=== PATIENT | female | born 1955 | race Caucasian/White ===

== ENCOUNTER 2018-07-04 05:50 | Inpatient (IN) ==
[2018-07-04] MEDS ORDERED: ACETAMINOPHEN 500 MG TABLET PO STA (07:36)
[2018-07-04] MEDS ORDERED: ONDANSETRON 4 MG/2 ML VIAL IV STA (07:36)
[2018-07-04 08:03] LABS: Basophils % 0.6 % (0.0-0.8); Eosinophils # 0.1 10*3/uL (0.0-0.87); Eosinophils % 2.6 % (0.00-10.9); Hematocrit 33.2 VOL% (35.7-47.0); Immature Granulocytes % 0.2 %; Immature Granulocytes Absolute 0.01 #; Lymphocytes # 1.5 10*3/uL (1.4-4.0); Lymphocytes % 27.1 % (21.3-54.2); Mean Corpuscular HGB Conc 33.1 GM/DL (32-36); Mean Corpuscular Hemoglobin 32 PG (27-34); Mean Corpuscular Volume 97.1 FL (87-102); Mean Platelet Volume 9.3 FL (9.6-12.0); Monocytes # 0.6 10*3/uL (0.11-0.8); Monocytes % 10.5 % (1.7-12.7); Neutrophils # 3.2 10*3/uL (1.4-7.4); Platelet Count 181 T/CUMM (130-400); Red Blood Count 3.42 MC/CUMM (3.8-5.5); White Blood Count 5.4 T/CUMM (4-12)
[2018-07-04 08:17] LABS: PT Patient Result 10.2 SECS; Partial Thromboplastin Time 28.2 SECS (0-40)
[2018-07-04 08:35] LABS: Alanine Aminotransferase 24 U/L (13-56); Albumin 3.1 G/DL (3.4-5.0); Alkaline Phosphatase 106 U/L (45-117); Aspartate Amino Transferase 18 U/L (0-37); Bilirubin,Total < 0.39 MG/DL (0.2-1.0); Blood Urea Nitrogen 12 MG/DL (7-18); Calcium 8.3 MG/DL (8.5-10.1); Glucose 108 MG/DL (74-106); Osmolality,Calculated 283.1 MOS/KG (273-304); Potassium 3.9 MMOL/L (3.5-5.1); Sodium 142 MMOL/L (136-145); Total Protein 6.4 G/DL (6.4-8.3)
[2018-07-04 11:29] LABS: Appearance,CSF Clear; Lymphocytes,CSF 83 %; Monocytes,CSF 17 %; Red Blood Cell,CSF 4 C/CUMM; White Blood Cell,CSF 7 C/CUMM
[2018-07-04] MEDS ORDERED: cefTRIAXone 2,000 MG in SODIUM CHLORIDE 0.9% 100 ML IV ONE (12:23)
[2018-07-04] MEDS ORDERED: cefTRIAXone 1,000 MG VIAL ONE (12:49)
[2018-07-04] MEDS: cefTRIAXone 2,000 MG in SYRINGE 1 EACH IV SCH ×2 (13:00→23:22)
[2018-07-04 13:23] LABS: Apearance,Urine CLEAR (Clear); Bilirubin,Urine Negative (Negative); Blood, Urine Negative (Negative); Glucose,Urine (UA) Negative (Negative); Hyaline Casts,Urine 1 /LPF (0-3); Ketones,Urine Negative (Negative); Mucus,Urine Occasional /LPF (Occasional); Nitrite,Urine Negative (Negative); Protein,Urine Negative; RBC,Urine <1 /HPF (0-4); Squamous Epithelial Cell,Urine Occasional /HPF (0-10); Urine Color Yellow (Yellow); Urine Specific Gravity > 1.060 (1.001-1.035); Urine Urobilinogen < 2.0 EU/DL (0.2-1.0)
[2018-07-04] MEDS ORDERED: ONDANSETRON 4 MG/2 ML VIAL IV PRN (13:31)
[2018-07-04] MEDS ORDERED: PROMETHAZINE 25 MG/1 ML VIAL IM PRN (13:31)
[2018-07-04] MEDS ORDERED: ACETAMINOPHEN 325 MG TABLET PO PRN (13:31)
[2018-07-04] MEDS ORDERED: BISACODYL 5 MG TABLET PO PRN (13:31)
[2018-07-04] MEDS: SODIUM CHLORIDE 0.9% 1,000 ML IV SCH (16:33)
[2018-07-04] MEDS: METHOCARBAMOL INJ 500 MG in SODIUM CHLORIDE 0.9% 100 ML IV SCH (17:35)
[2018-07-04] MEDS: ENOXAPARIN 40 MG/0.4 ML SYRINGE SUBCUT SCH (18:04)
[2018-07-04] MEDS: ACYCLOVIR INJ 500 MG in SODIUM CHLORIDE 0.9% 100 ML IV SCH (18:16)
[2018-07-04] MEDS: POTASSIUM CHLORIDE 8 MEQ CAPSULE PO SCH (20:43)
[2018-07-04] MEDS: CLORAZEPATE 3.75 MG TABLET PO SCH (20:43)
[2018-07-04] MEDS: CHOLESTYRAMINE 4 GM PACK PO SCH (20:43)
[2018-07-05] MEDS: METHOCARBAMOL INJ 500 MG in SODIUM CHLORIDE 0.9% 100 ML IV SCH ×2 (00:05→09:25)
[2018-07-05] MEDS: ACYCLOVIR INJ 500 MG in SODIUM CHLORIDE 0.9% 100 ML IV SCH ×3 (00:38→17:42)
[2018-07-05 05:41] LABS: Basophils % 0.9 % (0.0-0.8); Eosinophils # 0.2 10*3/uL (0.0-0.87); Eosinophils % 4.3 % (0.00-10.9); Hematocrit 32.6 VOL% (35.7-47.0); Hemoglobin 10.7 GM/DL (12.0-16.0); Immature Granulocytes % 0.2 %; Immature Granulocytes Absolute 0.01 #; Lymphocytes # 1.6 10*3/uL (1.4-4.0); Lymphocytes % 35.3 % (21.3-54.2); Mean Corpuscular HGB Conc 32.8 GM/DL (32-36); Mean Corpuscular Hemoglobin 32 PG (27-34); Mean Corpuscular Volume 96.4 FL (87-102); Mean Platelet Volume 9.6 FL (9.6-12.0); Monocytes # 0.5 10*3/uL (0.11-0.8); Monocytes % 11.6 % (1.7-12.7); Neutrophils # 2.1 10*3/uL (1.4-7.4); Neutrophils % 47.7 % (38.7-73.9); Platelet Count 169 T/CUMM (130-400); Red Blood Count 3.38 MC/CUMM (3.8-5.5); Red Cell Distribution Width 12.8 % (9.3-17.3); White Blood Count 4.4 T/CUMM (4-12)
[2018-07-05 05:59] LABS: Alanine Aminotransferase 18 U/L (13-56); Albumin 2.6 G/DL (3.4-5.0); Alkaline Phosphatase 95 U/L (45-117); Aspartate Amino Transferase 15 U/L (0-37); Bilirubin,Total < 0.39 MG/DL (0.2-1.0); Blood Urea Nitrogen 8 MG/DL (7-18); Calcium 8.1 MG/DL (8.5-10.1); Cholesterol 163 MG/DL (50-200); Glucose 88 MG/DL (74-106); HDL Cholesterol 46 MG/DL (40-60); Osmolality,Calculated 279.1 MOS/KG (273-304); Potassium 3.4 MMOL/L (3.5-5.1); Risk Ratio 3.54; Sodium 142 MMOL/L (136-145); Total Protein 5.9 G/DL (6.4-8.3); Triglycerides 144 MG/DL (2-150); VLDL CHOLESTEROL 28.8 MG/DL
[2018-07-05] MEDS ORDERED: FINASTERIDE 1 MG PO SCH (09:00)
[2018-07-05] MEDS: CHOLECALCIFEROL 1,000 UNIT TABLET PO SCH (09:23)
[2018-07-05] MEDS: amLODIPine 5 MG TABLET PO SCH (09:24)
[2018-07-05] MEDS: ESTROGENS (CONJ) 0.625 MG TABLET PO SCH (09:24)
[2018-07-05] MEDS: MONTELUKAST 10 MG TABLET PO SCH (09:24)
[2018-07-05] MEDS: MULTIVITAMIN (CENTRUM) TABLET PO SCH (09:24)
[2018-07-05] MEDS: LISINOPRIL/HCTZ 20-25 MG TABLET PO SCH (09:24)
[2018-07-05] MEDS: ASCORBIC ACID 500 MG TABLET PO SCH (09:24)
[2018-07-05] MEDS: CALCIUM (CARBONATE) 500 MG TABLET PO SCH (09:24)
[2018-07-05] MEDS: CHOLESTYRAMINE 4 GM PACK PO SCH ×2 (09:25→20:42)
[2018-07-05] MEDS: CLORAZEPATE 3.75 MG TABLET PO SCH ×2 (09:29→20:40)
[2018-07-05] MEDS: POTASSIUM CHLORIDE 8 MEQ CAPSULE PO SCH ×2 (10:07→20:40)
[2018-07-05] MEDS: cefTRIAXone 2,000 MG in SYRINGE 1 EACH IV SCH ×2 (12:37→23:48)
[2018-07-05] MEDS: ENOXAPARIN 40 MG/0.4 ML SYRINGE SUBCUT SCH (15:40)
[2018-07-05] MEDS: POTASSIUM CHLORIDE 20 MEQ TABLET PO SCH ×2 (15:40→20:40)
[2018-07-05] MEDS: SODIUM CHLORIDE 0.9% 1,000 ML IV SCH (17:43)
[2018-07-05] MEDS: CYCLOBENZAPRINE 10 MG TABLET PO SCH (20:40)
[2018-07-06] MEDS: ACYCLOVIR INJ 500 MG in SODIUM CHLORIDE 0.9% 100 ML IV SCH ×3 (00:57→18:34)
[2018-07-06 05:13] LABS: Basophils % 0.7 % (0.0-0.8); Eosinophils # 0.2 10*3/uL (0.0-0.87); Eosinophils % 4.1 % (0.00-10.9); Hematocrit 30.5 VOL% (35.7-47.0); Lymphocytes % 44.9 % (21.3-54.2); Mean Corpuscular HGB Conc 32.8 GM/DL (32-36); Mean Corpuscular Hemoglobin 32 PG (27-34); Mean Corpuscular Volume 96.2 FL (87-102); Mean Platelet Volume 9.8 FL (9.6-12.0); Monocytes # 0.5 10*3/uL (0.11-0.8); Monocytes % 11.1 % (1.7-12.7); Neutrophils # 1.7 10*3/uL (1.4-7.4); Neutrophils % 39.2 % (38.7-73.9); Platelet Count 185 T/CUMM (130-400); Red Blood Count 3.17 MC/CUMM (3.8-5.5); Red Cell Distribution Width 12.9 % (9.3-17.3); White Blood Count 4.4 T/CUMM (4-12)
[2018-07-06 05:26] LABS: Calcium 8.2 MG/DL (8.5-10.1); Potassium 3.9 MMOL/L (3.5-5.1)
[2018-07-06 05:39] LABS: Folate 19.7 NG/ML (5.4-24.0)
[2018-07-06] MEDS: LACTOBACILLUS ACIDOPHILUS/BULGARICUS CAPLET PO SCH (10:34)
[2018-07-06] MEDS: CYCLOBENZAPRINE 10 MG TABLET PO SCH ×3 (10:34→21:05)
[2018-07-06] MEDS: CLORAZEPATE 3.75 MG TABLET PO SCH ×3 (10:34→21:12)
[2018-07-06] MEDS: DIPHENOXYLATE/ATROPINE 2.5-0.025 MG TABLET PO PRN ×2 (10:34→16:46)
[2018-07-06] MEDS: ESTROGENS (CONJ) 0.625 MG TABLET PO SCH (10:34)
[2018-07-06] MEDS: CHOLECALCIFEROL 1,000 UNIT TABLET PO SCH (10:35)
[2018-07-06] MEDS: CALCIUM (CARBONATE) 500 MG TABLET PO SCH (10:35)
[2018-07-06] MEDS: amLODIPine 5 MG TABLET PO SCH (10:35)
[2018-07-06] MEDS: ASCORBIC ACID 500 MG TABLET PO SCH (10:36)
[2018-07-06] MEDS: POTASSIUM CHLORIDE 8 MEQ CAPSULE PO SCH ×2 (10:36→21:05)
[2018-07-06] MEDS: MULTIVITAMIN (CENTRUM) TABLET PO SCH (10:36)
[2018-07-06] MEDS: CHOLESTYRAMINE 4 GM PACK PO SCH ×2 (10:36→21:05)
[2018-07-06] MEDS: LISINOPRIL/HCTZ 20-25 MG TABLET PO SCH (10:43)
[2018-07-06] MEDS: MONTELUKAST 10 MG TABLET PO SCH (10:43)
[2018-07-06] MEDS ORDERED: KETOROLAC 30 MG/1 ML VIAL IV ONE (11:08)
[2018-07-06] MEDS ORDERED: METHOCARBAMOL 750 MG TABLET PO PRN (11:09)
[2018-07-06] MEDS ORDERED: KETOROLAC 15 MG/1 ML VIAL IV PRN (11:09)
[2018-07-06] MEDS: cefTRIAXone 2,000 MG in SYRINGE 1 EACH IV SCH ×2 (12:17→23:31)
[2018-07-06] MEDS: ENOXAPARIN 40 MG/0.4 ML SYRINGE SUBCUT SCH (14:00)
[2018-07-06] MEDS: SODIUM CHLORIDE 0.9% 1,000 ML IV SCH (20:28)
[2018-07-07] MEDS: ACYCLOVIR INJ 500 MG in SODIUM CHLORIDE 0.9% 100 ML IV SCH ×3 (00:58→17:30)
[2018-07-07] MEDS: DIPHENOXYLATE/ATROPINE 2.5-0.025 MG TABLET PO PRN ×2 (08:38→13:35)
[2018-07-07] MEDS: CHOLESTYRAMINE 4 GM PACK PO SCH ×2 (08:40→20:55)
[2018-07-07] MEDS: LACTOBACILLUS ACIDOPHILUS/BULGARICUS CAPLET PO SCH (08:41)
[2018-07-07] MEDS: CYCLOBENZAPRINE 10 MG TABLET PO SCH ×3 (08:42→20:54)
[2018-07-07] MEDS: amLODIPine 5 MG TABLET PO SCH (08:42)
[2018-07-07] MEDS: LISINOPRIL/HCTZ 20-25 MG TABLET PO SCH (08:43)
[2018-07-07] MEDS: MONTELUKAST 10 MG TABLET PO SCH (08:43)
[2018-07-07] MEDS: CHOLECALCIFEROL 1,000 UNIT TABLET PO SCH (08:44)
[2018-07-07] MEDS: ESTROGENS (CONJ) 0.625 MG TABLET PO SCH (08:44)
[2018-07-07] MEDS: ASCORBIC ACID 500 MG TABLET PO SCH (08:45)
[2018-07-07] MEDS: CALCIUM (CARBONATE) 500 MG TABLET PO SCH (08:46)
[2018-07-07] MEDS: MULTIVITAMIN (CENTRUM) TABLET PO SCH (08:47)
[2018-07-07] MEDS: POTASSIUM CHLORIDE 8 MEQ CAPSULE PO SCH ×2 (08:47→20:54)
[2018-07-07] MEDS: CLORAZEPATE 3.75 MG TABLET PO SCH ×2 (08:48→20:54)
[2018-07-07] MEDS: cefTRIAXone 2,000 MG in SYRINGE 1 EACH IV SCH (13:36)
[2018-07-07] MEDS: ENOXAPARIN 40 MG/0.4 ML SYRINGE SUBCUT SCH (15:53)
[2018-07-08] MEDS: cefTRIAXone 2,000 MG in SYRINGE 1 EACH IV SCH ×2 (01:18→12:21)
[2018-07-08] MEDS: ACYCLOVIR INJ 500 MG in SODIUM CHLORIDE 0.9% 100 ML IV SCH ×2 (01:22→09:52)
[2018-07-08] MEDS: SODIUM CHLORIDE 0.9% 1,000 ML IV SCH (06:16)
[2018-07-08] MEDS: LACTOBACILLUS ACIDOPHILUS/BULGARICUS CAPLET PO SCH (09:50)
[2018-07-08] MEDS: amLODIPine 5 MG TABLET PO SCH (09:51)
[2018-07-08] MEDS: CHOLECALCIFEROL 1,000 UNIT TABLET PO SCH (09:51)
[2018-07-08] MEDS: CLORAZEPATE 3.75 MG TABLET PO SCH (09:51)
[2018-07-08] MEDS: ASCORBIC ACID 500 MG TABLET PO SCH (09:51)
[2018-07-08] MEDS: POTASSIUM CHLORIDE 8 MEQ CAPSULE PO SCH (09:51)
[2018-07-08] MEDS: MULTIVITAMIN (CENTRUM) TABLET PO SCH (09:51)
[2018-07-08] MEDS: LISINOPRIL/HCTZ 20-25 MG TABLET PO SCH (09:51)
[2018-07-08] MEDS: CALCIUM (CARBONATE) 500 MG TABLET PO SCH (09:51)
[2018-07-08] MEDS: ESTROGENS (CONJ) 0.625 MG TABLET PO SCH (09:51)
[2018-07-08] MEDS: MONTELUKAST 10 MG TABLET PO SCH (09:51)
[2018-07-08] MEDS: CYCLOBENZAPRINE 10 MG TABLET PO SCH (09:52)
[2018-07-08] MEDS: CHOLESTYRAMINE 4 GM PACK PO SCH (09:52)
[2018-07-08 12:34] VITALS: BP 176/92
== END 2018-07-08 12:25 | disposition home or self-care (01) | DRG 864 ==
LOC: N.ED 05:50 → N.EDINP 13:10 → N.4E 15:43
PROVIDERS: ADMIT Hospitalist; ATTEND Hospitalist

== ENCOUNTER 2019-12-10 08:45 | Inpatient (IN) ==
[2019-12-04 14:42] LABS: Basophils % 0.4 % (0.0-0.8); Eosinophils # 0.1 10*3/uL (0.0-0.87); Eosinophils % 1.9 % (0.00-10.9); Hematocrit 27.2 VOL% (35.7-47.0); Hemoglobin 8.3 GM/DL (12.0-16.0); Immature Granulocytes % 0.3 %; Immature Granulocytes Absolute 0.02 #; Lymphocytes # 1.3 10*3/uL (1.4-4.0); Lymphocytes % 19.8 % (21.3-54.2); Mean Corpuscular HGB Conc 30.5 GM/DL (32-36); Mean Corpuscular Volume 86.3 FL (87-102); Monocytes % 8.9 % (1.7-12.7); Neutrophils % 68.7 % (38.7-73.9); Platelet Count 269 T/CUMM (130-400); Red Blood Count 3.15 MC/CUMM (3.8-5.5); Red Cell Distribution Width 14.1 % (9.3-17.3); White Blood Count 6.8 T/CUMM (4-12)
[2019-12-04 15:00] LABS: Calcium 8.5 MG/DL (8.5-10.1)
[~2019-12-10 08:45] MED LIST: cefOXitin 1,000 MG in SYRINGE 1 EACH IV ONE
[2019-12-10] MEDS ORDERED: FAMOTIDINE 20 MG TABLET PO ONE (09:55)
[2019-12-10] MEDS ORDERED: DIAZEPAM 5 MG TABLET PO ONE (09:55)
[2019-12-10] MEDS ORDERED: LACTATED RINGERS 1,000 ML IV SCH (10:00)
[2019-12-10] MEDS ORDERED: DIAZEPAM 5 MG TABLET ONE (10:06)
[2019-12-10] MEDS ORDERED: FAMOTIDINE 20 MG TABLET ONE (10:06)
[2019-12-10] MEDS ORDERED: MIDAZOLAM 2 MG/2 ML VIAL ONE (10:42)
[2019-12-10] MEDS ORDERED: LIDOCAINE 1% 5 ML VIAL ONE (10:42)
[2019-12-10] MEDS ORDERED: fentaNYL 100 MCG/2 ML VIAL ONE ×2 (10:42→14:33)
[2019-12-10] MEDS ORDERED: DEXAMETHASONE 4 MG/1 ML VIAL ONE (10:42)
[2019-12-10] MEDS ORDERED: ROPIVACAINE 0.5% 30 ML VIAL ONE (10:42)
[2019-12-10] MEDS ORDERED: BUPIVACAINE MPF 0.25% 30 ML VIAL ONE (12:20)
[2019-12-10] MEDS ORDERED: LIDOCAINE 1%/EPI INJ 20 ML VIAL ONE (12:20)
[2019-12-10] MEDS ORDERED: TISSUE ADHESIVE 1 EACH APPLICATOR TOP ONE (13:50)
[2019-12-10] MEDS ORDERED: LIDOCAINE 2% 5 ML VIAL ONE (14:32)
[2019-12-10] MEDS ORDERED: propofoL 200 MG/20 ML VIAL IV ONE (14:32)
[2019-12-10] MEDS ORDERED: SEVOFLURANE 1 UNIT/15 MINUTE INH ONE (14:32)
[2019-12-10] MEDS ORDERED: ONDANSETRON 4 MG/2 ML VIAL ONE ×2 (14:33→14:57)
[2019-12-10] MEDS ORDERED: ePHEDrine 50 MG/ML AMP ONE (14:33)
[2019-12-10] MEDS ORDERED: PHENYLEPHRINE 1 MG/10 ML SYRINGE IV ONE (14:33)
[2019-12-10] MEDS ORDERED: GLYCOPYRROLATE 0.4 MG/2 ML VIAL ONE (14:33)
[2019-12-10] MEDS ORDERED: ROCURONIUM 100 MG/10 ML VIAL IV ONE (14:34)
[2019-12-10] MEDS ORDERED: NEOSTIGMINE 10 MG/10 ML VIAL ONE (14:34)
[2019-12-10] MEDS ORDERED: HYDROmorphone 2 MG/1 ML VIAL ONE (14:57)
[2019-12-10] MEDS ORDERED: ONDANSETRON 4 MG/2 ML VIAL IV PRN (14:57)
[2019-12-10] MEDS: HYDROmorphone 2 MG/1 ML VIAL IV PRN ×2 (15:00→15:05)
[2019-12-10] MEDS: cefOXitin 1,000 MG in SYRINGE 1 EACH IV SCH ×2 (17:37→21:20)
[2019-12-10] MEDS: DEXTROSE 5% NACL 0.9% 1,000 ML IV SCH ×3 (17:37→23:59)
[2019-12-10] MEDS: MORPHINE 4 MG/1 ML VIAL IV PRN ×2 (17:38→21:19)
[2019-12-10] MEDS ORDERED: ceFAZolin 2,000 MG in PREMIX 1 EACH IV SCH (20:18)
[2019-12-10] MEDS: ONDANSETRON 4 MG/2 ML VIAL IV PRN (21:20)
[2019-12-11] MEDS: cefOXitin 1,000 MG in SYRINGE 1 EACH IV SCH (02:52)
[2019-12-11] MEDS: MORPHINE 4 MG/1 ML VIAL IV PRN (03:46)
[2019-12-11] MEDS: ONDANSETRON 4 MG/2 ML VIAL IV PRN ×2 (03:47→19:14)
[2019-12-11] MEDS ORDERED: MORPHINE 4 MG/1 ML VIAL IV ONE (04:49)
[2019-12-11] MEDS: DEXTROSE 5% NACL 0.9% 1,000 ML IV SCH ×3 (05:40→23:11)
[2019-12-11] MEDS: ENOXAPARIN 40 MG/0.4 ML SYRINGE SUBCUT SCH (09:04)
[2019-12-11] MEDS: oxyCODONE/ACETAMINOPHEN 5-325 MG TABLET PO PRN ×4 (09:05→23:09)
[2019-12-11] MEDS: SIMETHICONE CHEW 80 MG TABLET PO PRN (22:45)
[2019-12-12] MEDS: DEXTROSE 5% NACL 0.9% 1,000 ML IV SCH ×2 (06:41→14:48)
[2019-12-12] MEDS: oxyCODONE/ACETAMINOPHEN 5-325 MG TABLET PO PRN (07:10)
[2019-12-12] MEDS: ENOXAPARIN 40 MG/0.4 ML SYRINGE SUBCUT SCH (09:07)
[2019-12-12] MEDS: SIMETHICONE CHEW 80 MG TABLET PO PRN (12:18)
[2019-12-12 12:36] VITALS: BP 150/82
== END 2019-12-12 15:24 | disposition home health service (06) | DRG 326 ==
LOC: EDSTATUS 08:45 → N.SDSINP 09:16 → N.3E 15:38
PROVIDERS: ADMIT Surgery; ATTEND Surgery